=== PATIENT | male | born 1995 | race Caucasian/White ===

== ENCOUNTER 2023-08-21 12:52 | Emergency (ER) | payer BC ==
[~2023-08-21] VITALS: Ht 177.8 cm; Wt 79.0 kg
[2023-08-21] MEDS: IBUPROFEN 600MG TAB PO ONE (13:36)
[2023-08-21] MEDS: LIDOCAINE 4% CREAM 5GM (LMX4) TOP ONE (13:36)
[2023-08-21 14:08] VITALS: BP 140/86; TEMP 98.3; O2SAT 98
== END 2023-08-21 14:10 | disposition home or self-care (01) ==
LOC: M ED 12:52
DX: S60.221A Contusion of right hand, initial encounter (principal); Y92.410 Unspecified street and highway as the place of occurrence of the external cause; Y93.9 Activity, unspecified; Y99.9 Unspecified external cause status

== ENCOUNTER → 2023-10-15 | Outpatient (CLI) | payer BC | LOC: M SOG 08:37 | PROVIDERS: ATTEND Physician Assistant | DX: M79.641 Pain in right hand (principal) ==

== ENCOUNTER → 2023-10-28 | Outpatient (CLI) | payer BC ==
[~2023-10-28] MED LIST: PROHANCE 279.3MG/ML 15ML VIAL ONE; PROHANCE 279.3MG/ML 5ML VIAL ONE
== END ==
LOC: M PLAIMG 07:29
PROVIDERS: ATTEND Physician Assistant
DX: M25.541 Pain in joints of right hand (principal)